=== PATIENT | female | born 1955 | race Caucasian/White ===

== ENCOUNTER → 2020-09-15 | Outpatient (CLI) | payer BC ==
[~2020-09-15] MED LIST: ALBUTEROL0.63 MG/3 INH; ALDACTONE25 MG PO; BONIVA150 MG PO; CALCIUM 600 MG PO; COREG12.5 MG PO; CRESTOR10 MG PO; CYMBALTA20 MG PO; ECOTRIN81 MG PO; ENTRESTO 49 MG1 EACH PO; FLAGYL500 MG PO; GLUCOPHAGE XR500 MG PO; IMDUR ER TAB 3030 MG PO; LASIX20 MG PO; LISINOPRIL40 MG PO; LOPRESSOR100 MG PO; NITROGLYCERIN0.4 MG SL; NORCO 10-325 T1 EACH PO; OMEGA 3 FISH O1 EACH PO; PEPTO-BISM525 MG/15 PO; PERCOCET 10-321 EACH PO; PROAIR HFA8.5 GM INH; SAVELLA50 MG PO; SINGULAIR10 MG PO; TRULICITY0.75 MG/0. SL; VICTOZA 1818 MG/3 ML SC; VIT D PO; ZOFRAN4 MG PO; ZYRTEC10 MG PO
== END ==
LOC: MRI 09:26
DX: M25.562 Pain in left knee (principal); M22.42 Chondromalacia patellae, left knee
CPT/HCPCS: 73721

== ENCOUNTER → 2021-04-12 | Outpatient (CLI) | payer BC | LOC: HEART 5 12:50 | DX: R07.9 Chest pain, unspecified (principal) | CPT/HCPCS: 93306 ==